=== PATIENT | male | born 1930 | race Caucasian/White ===

== ENCOUNTER 2016-06-06 16:51 | Inpatient (IN) | payer MEDICARE, OTHER ==
[~2016-06-06 16:51] MED LIST: ASPIRIN EC81 MG PO; GLUCOSAMINE &1 EAC1 PO; MULTIVITAMINS1 EAC6 PO; POTASSIUM PO; POTASSIUM99 M5 PO; XALATAN2.5 M1 EACH EYE
[2016-06-06] MEDS ORDERED: B-12 PO (17:20)
[2016-06-06 18:42] LABS: INR 1.2 INR (0.9-1.1); PROTHROMBIN TIME 13.5 SECONDS (9.0-13.6)
[2016-06-06 18:56] LABS: ALB/GLOB RATIO 0.6 (0.8-2.0); ALBUMIN 2.5 g/dl (3.5-5.0); ALKALINE PHOSPHATASE 81 U/L (33-138); ALT/SGPT 34 U/L (12-78); ANION GAP 11 mmol/L (0-20); AST/SGOT 39 U/L (10-40); BILIRUBIN,TOTAL 0.4 mg/dl (0.0-1.5); BLOOD UREA NITROGEN 28 mg/dl (6-24); CALCIUM 8.6 mg/dl (8.5-10.5); CARBON DIOXIDE-VENOUS 27 mmol/L (22-32); CHLORIDE 108 mmol/l (96-110); CREATININE 1.71 mg/dl (0.60-1.30); GLUCOSE 139 mg/dL (70-110); POTASSIUM 4.4 mmol/L (3.7-5.1); SODIUM 142 mmol/L (135-145); eGFR VALUE FOR BLACK 41 mL/Min
[2016-06-06 19:12] LABS: PROCALCITONIN 0.09 ng/ml (0.05-0.09)
[2016-06-06 21:39] LABS: URINE BILIRUBIN NEGATIVE (NEG); URINE BLOOD NEGATIVE (NEG); URINE GLUCOSE (UA) NEGATIVE (NEG); URINE KETONE NEGATIVE (NEG); URINE LEUKOCYTE ESTERASE POSITIVE (NEG); URINE NITRITE NEGATIVE (NEG); URINE PROTEIN MODERATE (NEG); URINE SPECIFIC GRAVITY 1.015 (1.003-1.030)
[2016-06-06 21:42] LABS: URINE APPEARANCE HAZY; URINE COLOR YELLOW
[2016-06-06 21:48] LABS: URINE AMORPHOUS 1+; URINE EPITHELIAL CELLS RARE /[HPF] (0-10)
[2016-06-07 05:45] LABS: BASO % 1.1 % (0-2); EOS % 5.5 % (0-7); EOSINOPHIL ABSOLUTE COUNT 0.2 tho/cmm (0.0-0.7); HGB-HEMOGLOBIN 9.5 gm/dl (13.5-17.0); IMMATURE GRANULOCYTES ABSOLUTE 0.02 tho/cmm (0-0.03); IMMATURE GRANULOCYTES PERCENT 0.6 % (0-0.3); LYMPH % 16.1 % (20-45); LYMPH ABSOLUTE COUNT 0.6 tho/cmm (0.8-4.5); MCH (MEAN CORPUSCULAR HGB) 29.3 pg (28.0-32.0); MCHC MEAN CORPUSCULAR HGB CONC 31.7 % (32.0-36.0); MCV (MEAN CELL VOLUME) 92.6 fl (82.0-96.0); MEAN PLATELET VOLUME 11.2 cmc (9.4-12.4); MONO % 16.6 % (0-12); MONOCYTE ABSOLUTE COUNT 0.6 tho/cmm (0.0-1.2); NEUTROPHIL ABSOLUTE COUNT 2.2 tho/cmm (1.6-8.0); NEUTROPHIL-AUTOMATED 2.2 tho/cmm (1.6-8.0); NEUTROPHILS % 60.1 % (40-80); PLATELET COUNT 175 tho/cmm (150-450); RED BLOOD COUNT 3.24 mil/cmm (4.40-5.70); RED CELL DISTRIBUTION WIDTH 14.1 % (12.4-16.4); WHITE BLOOD COUNT 3.6 tho/cmm (4.0-10.0)
[2016-06-07 05:58] LABS: ANION GAP 12 mmol/L (0-20); BLOOD UREA NITROGEN 26 mg/dl (6-24); CALCIUM 8.3 mg/dl (8.5-10.5); CARBON DIOXIDE-VENOUS 26 mmol/L (22-32); CHLORIDE 108 mmol/l (96-110); CREATININE 1.59 mg/dl (0.60-1.30); GLUCOSE 103 mg/dL (70-110); MAGNESIUM 2.2 mg/dl (1.3-2.6); POTASSIUM 4.4 mmol/L (3.7-5.1); SODIUM 142 mmol/L (135-145); eGFR VALUE FOR BLACK 45 mL/Min
[2016-06-08 06:01] LABS: BASO % 0.9 % (0-2); EOS % 6.3 % (0-7); EOSINOPHIL ABSOLUTE COUNT 0.2 tho/cmm (0.0-0.7); HGB-HEMOGLOBIN 8.7 gm/dl (13.5-17.0); IMMATURE GRANULOCYTES ABSOLUTE 0.02 tho/cmm (0-0.03); IMMATURE GRANULOCYTES PERCENT 0.6 % (0-0.3); LYMPH ABSOLUTE COUNT 0.4 tho/cmm (0.8-4.5); MCH (MEAN CORPUSCULAR HGB) 29.9 pg (28.0-32.0); MCHC MEAN CORPUSCULAR HGB CONC 32.2 % (32.0-36.0); MCV (MEAN CELL VOLUME) 92.8 fl (82.0-96.0); MEAN PLATELET VOLUME 11.2 cmc (9.4-12.4); MONO % 12.3 % (0-12); MONOCYTE ABSOLUTE COUNT 0.4 tho/cmm (0.0-1.2); NEUTROPHIL ABSOLUTE COUNT 2.3 tho/cmm (1.6-8.0); NEUTROPHIL-AUTOMATED 2.3 tho/cmm (1.6-8.0); NEUTROPHILS % 67.9 % (40-80); PLATELET COUNT 172 tho/cmm (150-450); RED BLOOD COUNT 2.91 mil/cmm (4.40-5.70); RED CELL DISTRIBUTION WIDTH 14.1 % (12.4-16.4); WHITE BLOOD COUNT 3.3 tho/cmm (4.0-10.0)
[2016-06-08 06:16] LABS: ALB/GLOB RATIO 0.6 (0.8-2.0); ALBUMIN 2.2 g/dl (3.5-5.0); ALKALINE PHOSPHATASE 77 U/L (33-138); ALT/SGPT 34 U/L (12-78); ANION GAP 12 mmol/L (0-20); AST/SGOT 54 U/L (10-40); BILIRUBIN,TOTAL 0.4 mg/dl (0.0-1.5); BLOOD UREA NITROGEN 20 mg/dl (6-24); CARBON DIOXIDE-VENOUS 25 mmol/L (22-32); CHLORIDE 111 mmol/l (96-110); CREATININE 1.43 mg/dl (0.60-1.30); GLUCOSE 92 mg/dL (70-110); POTASSIUM 4.2 mmol/L (3.7-5.1); SODIUM 144 mmol/L (135-145); eGFR VALUE FOR BLACK 51 mL/Min
[2016-06-09 06:11] LABS: BASO % 2.4 % (0-2); BASO ABSOLUTE COUNT 0.1 tho/cmm (0.0-0.2); EOS % 8.3 % (0-7); EOSINOPHIL ABSOLUTE COUNT 0.2 tho/cmm (0.0-0.7); HCT-HEMATOCRIT 27.8 % (36.0-53.5); HGB-HEMOGLOBIN 8.9 gm/dl (13.5-17.0); IMMATURE GRANULOCYTES ABSOLUTE 0.01 tho/cmm (0-0.03); IMMATURE GRANULOCYTES PERCENT 0.3 % (0-0.3); LYMPH % 12.5 % (20-45); LYMPH ABSOLUTE COUNT 0.4 tho/cmm (0.8-4.5); MCH (MEAN CORPUSCULAR HGB) 29.4 pg (28.0-32.0); MCV (MEAN CELL VOLUME) 91.7 fl (82.0-96.0); MONO % 15.6 % (0-12); MONOCYTE ABSOLUTE COUNT 0.5 tho/cmm (0.0-1.2); NEUTROPHIL ABSOLUTE COUNT 1.8 tho/cmm (1.6-8.0); NEUTROPHIL-AUTOMATED 1.8 tho/cmm (1.6-8.0); NEUTROPHILS % 60.9 % (40-80); PLATELET COUNT 179 tho/cmm (150-450); RED BLOOD COUNT 3.03 mil/cmm (4.40-5.70); RED CELL DISTRIBUTION WIDTH 13.9 % (12.4-16.4); WHITE BLOOD COUNT 2.9 tho/cmm (4.0-10.0)
[2016-06-09 06:23] LABS: ANION GAP 12 mmol/L (0-20); BLOOD UREA NITROGEN 23 mg/dl (6-24); CALCIUM 8.2 mg/dl (8.5-10.5); CARBON DIOXIDE-VENOUS 24 mmol/L (22-32); CHLORIDE 111 mmol/l (96-110); CREATININE 1.45 mg/dl (0.60-1.30); GLUCOSE 89 mg/dL (70-110); POTASSIUM 3.9 mmol/L (3.7-5.1); SODIUM 143 mmol/L (135-145); eGFR VALUE FOR BLACK 51 mL/Min
[2016-06-09] MEDS ORDERED: COLACE100 M1 PO (16:57)
[2016-06-09] MEDS ORDERED: KEFLEX500 M4 PO (16:57)
[2016-06-09] MEDS ORDERED: NORCO 5-325 TA1 EACH PO (16:58)
[2016-11-29] MEDS ORDERED: LEVAQUIN500 M1 PO (14:30)
[2016-11-29] MEDS ORDERED: PREDNISONE50 M1 PO (14:32)
== END 2016-06-09 17:34 | DRG 825 ==
LOC: 5WE 16:51 → ORW 06-07 13:58 → 5WE 06-07 15:00
PROVIDERS: Internal Medicine Hematology & Oncology; Physician Assistant; ADMIT Internal Medicine Hematology & Oncology
PROC: 07BJ3ZX Excision of Left Inguinal Lymphatic, Percutaneous Approach, Diagnostic (ICD-10-PCS; principal; 2016-06-07)
DX: C85.15 Unspecified B-cell lymphoma, lymph nodes of inguinal region and lower limb (principal); N18.3 Chronic kidney disease, stage 3 (moderate); H40.9 Unspecified glaucoma; M19.90 Unspecified osteoarthritis, unspecified site; Z92.21 Personal history of antineoplastic chemotherapy; Z92.3 Personal history of irradiation; Z79.82 Long term (current) use of aspirin; Z87.891 Personal history of nicotine dependence; Z96.659 Presence of unspecified artificial knee joint; Z96.619 Presence of unspecified artificial shoulder joint
CPT/HCPCS: C1729; C9290; J0690; J1650; J3370; J7030